=== PATIENT | female | born 1975 | race American Indian/Alaskan Native ===

== ENCOUNTER 2021-06-12 02:12 | Emergency (ER) | payer SELFPAY ==
[2021-06-12 02:36] VITALS: BP 147/88
[2021-06-12] MEDS ORDERED: ONDANSETRON 4 MG ODT TAB PO ONE (03:06)
[2021-06-12] MEDS ORDERED: IBUPROFEN 600 MG TAB PO ONE (03:06)
[2021-06-12] MEDS ORDERED: HYDROcodone/ACETAMINOPHEN 7.5-325MG TAB PO ONE (03:06)
--- NOTE | 2021-06-12 03:31 | Emergency Department Report ---
ED Extremity Problem HPI - General Chief complaint: Extremity Injury, Lower Stated complaint: RT ANKLE PAIN Source: patient Mode of arrival: Ambulatory Limitations: No Limitations - History of Present Illness Initial comments: Patient is a 45-year-old -[place] female with a history of asthma who presents to the ED with complaint of acute onset persistent nontraumatic right ankle and right fifth toe pain after wearing tight shoes and being on her feet for extended period of time for the last 5 days. Patient states that the pain has especially worsened in the last 24 hours. Patient states that she is unable to bear weight or walk because of worsening pain on the right ankle and right fifth toe. Patient denies fall, traumatic injury, nausea and vomiting, fever, chills, heavy lifting, numbness and tingling or weakness of right foot, shortness of breath, chest pain, nausea and vomiting or low back pain. MD Complaint: extremity pain (Right ankle wound right small toe pain), joint paint -: Sudden, days(s) (5) Location: right, lower extremity (Right ankle and right small toe pain), toe (Right small toe pain) History of Same: Yes -: Yes arthralgia, No associated dyspnea, No associated chest pain Radiation: distal Severity scale (0 -10): 7 Quality: aching, sharp Consistency: constant Improves with: nothing Worsens with: weight bearing, walking, exertion, palpation Associated Symptoms: denies other symptoms, arthralgias. denies: chest pain, shortness of breath, fever, myalgias, rash, other - Related Data Previous Rx's Medication Instructions Recorded Last Taken Type Naproxen 500 mg PO Q12H PRN #30 tab 06/12/21 Unknown Rx predniSONE [Deltasone] 40 mg PO QDAY #10 tab 06/12/21 Unknown Rx Allergies Allergy/AdvReac Type Severity Reaction Status Date / Time silver sulfadiazine AdvReac Unknown Verified 06/12/21 02:30 [From [facility] [place] [facility] [place] ED Review of Systems ROS: Stated complaint: RT ANKLE PAIN Other details as noted in HPI Constitutional: denies: chills, fever Eyes: denies: eye pain, eye discharge, vision change ENT: denies: ear pain, throat pain Respiratory: denies: cough, shortness of breath, wheezing Cardiovascular: denies: chest pain, palpitations Endocrine: no symptoms reported Gastrointestinal: denies: abdominal pain, nausea, vomiting, diarrhea Genitourinary: denies: urgency, dysuria, discharge Musculoskeletal: arthralgia (Right ankle and right fifth toe pain). denies: back pain, joint swelling Skin: denies: rash, lesions Neurological: denies: headache, weakness, paresthesias Psychiatric: denies: anxiety, depression Hematological/Lymphatic: denies: easy bleeding, easy bruising ED Past Medical Hx - Past Medical History Previous Medical History?: Yes Hx Asthma: Yes - Surgical History Past Surgical History?: Yes Additional Surgical History: Rt ankle surgery, - Medications Home Medications: Home Medications Medication Instructions Recorded Confirmed Last Taken Type Naproxen 500 mg PO Q12H PRN #30 tab 06/12/21 Unknown Rx predniSONE [Deltasone] 40 mg PO QDAY #10 tab 06/12/21 Unknown Rx ED Physical Exam - General Limitations: No Limitations General appearance: alert, in no apparent distress - Head Head exam: Present: atraumatic, normocephalic, normal inspection - Eye Eye exam: Present: normal appearance, PERRL, EOMI Pupils: Present: normal accommodation - ENT ENT exam: Present: normal exam, normal orophraynx, mucous membranes moist, TM's normal bilaterally, normal external ear exam - Neck Neck exam: Present: normal inspection, full ROM - Respiratory Respiratory exam: Present: normal lung sounds bilaterally. Absent: respiratory distress, wheezes, rales, stridor, chest wall tenderness, accessory muscle use, decreased breath sounds, prolonged expiratory - Cardiovascular Cardiovascular Exam: Present: regular rate, normal rhythm, normal heart sounds. Absent: systolic murmur, diastolic murmur, rubs, gallop - GI/Abdominal GI/Abdominal exam: Present: soft, normal bowel sounds. Absent: tenderness, guarding, rebound, hyperactive bowel sounds, hypoactive bowel sounds, organomegaly, mass - Extremities Exam Extremities exam: Present: normal inspection, full ROM, tenderness (Palpable right ankle and Achilles tendon tenderness), normal capillary refill, other (Palpable right fifth toe tenderness) - Back Exam Back exam: Present: normal inspection, full ROM. Absent: tenderness, CVA tenderness (R), CVA tenderness (L), muscle spasm, paraspinal tenderness, vertebral tenderness - Neurological Exam Neurological exam: Present: alert, oriented X3, CN II-XII intact, normal gait, reflexes normal - Psychiatric Psychiatric exam: Present: normal affect, normal mood - Skin Skin exam: Present: warm, dry, intact, normal color. Absent: rash ED Course Vital Signs 06/12/21 02:30 Temperature 98.5 F Pulse Rate 92 H Respiratory 18 Rate Blood Pressure 147/88 [Right] O2 Sat by Pulse 100 Oximetry ED Medical Decision Making - Medical Decision Making This is a 45-year-old -[place] female with a history of asthma who presents to the ED with complaint of acute onset persistent nontraumatic right ankle and right fifth toe pain after wearing tight shoes and being on her feet for extended period of time for the last 5 days. Patient states that the pain has especially worsened in the last 24 hours. Patient states that she is unable to bear weight or walk because of worsening pain on the right ankle and right fifth toe. In the ED, patient is alert and oriented x3 and is not in any distress. Patient however appears to be in pain during the physical exam. Patient was treated for pain in the ED and based on the history and physical exam findings, the patient symptoms are likely due to Achilles tendinitis versus muscle strain and right fifth toe sprain after wearing tight shoes at work. Patient was therefore discharged home on pain medications and advised to follow- up with her primary care physician in 5 to 7 days for reevaluation or return to the ED immediately if symptoms get worse. - Differential Diagnosis Achilles tendinitis; muscle strain; muscle spasm; foot sprain; toe sprain Critical care attestation.: If time is entered above; I have spent that time in minutes in the direct care of this critically ill patient, excluding procedure time. ED Disposition Clinical Impression: Achilles tendinitis of right lower extremity Strain of right ankle and foot Qualifiers: Encounter type: initial encounter Qualified Code(s): S96.911A - Strain of unspecified muscle and tendon at ankle and foot level, right foot, initial encounter Disposition: HOME / SELF CARE / HOMELESS Is pt being admited?: No Does the pt Need Aspirin: No Condition: Stable Instructions: Muscle Strain, [id number], Muscle Strain, Achilles Tendinitis Additional Instructions: Your symptoms are likely due to Achilles tendinitis or muscle strain of your right foot. Therefore take medications with food, drink plenty of fluids and follow-up with your primary care physician in 7 to 10 days for reevaluation. Return to the ED immediately if symptoms get worse. Prescriptions: predniSONE [Deltasone] 40 mg PO QDAY #10 tab Naproxen 500 mg PO Q12H PRN #30 tab PRN Reason: Pain , Severe (7-10) Referrals: DOREEN MATIAS MD [Primary Care Provider] - 3-5 Days Forms: Work/School Release Form(ED) Time of Disposition: 03:33 Print Language: TURKISH
== END 2021-06-12 04:04 | disposition home or self-care (01) ==
LOC: ED 02:12
DX: S96.911A Strain of unspecified muscle and tendon at ankle and foot level, right foot, initial encounter (principal); M76.61 Achilles tendinitis, right leg; J45.909 Unspecified asthma, uncomplicated; Z98.890 Other specified postprocedural states; Z88.8 Allergy status to other drugs, medicaments and biological substances; X58.XXXA Exposure to other specified factors, initial encounter; Y93.89 Activity, other specified; Y92.89 Other specified places as the place of occurrence of the external cause; Y99.8 Other external cause status
CPT/HCPCS: 99282; J3490; Q0162

== ENCOUNTER 2021-06-19 20:01 | Emergency (ER) | payer SELFPAY ==
[2021-06-19 21:29] VITALS: BP 165/95
--- NOTE | 2021-06-19 23:37 | Emergency Department Report ---
ED Extremity Problem HPI - General Chief complaint: Extremity Injury, Lower Stated complaint: TOE PAIN Source: patient Mode of arrival: Ambulatory Limitations: No Limitations - History of Present Illness Initial comments: Patient is a 45-year-old -[place] female with a history of asthma and heavy tobacco abuse who presents to the ED with complaint of acute onset persist ent distal right fifth toe pain with swelling and mild redness weeks. Patient states that she wore a tight shoe and suspect that her distal right fifth toe may have been scratched in the tight shoe and since then the pain has been getting worse. Patient states that she was initially evaluated about a week ago for the same and given pain medications but states that the pain has been persistent and worsening. Patient denies fall, traumatic injury, fever, chills, nausea and vomiting, chest pain or shortness of breath, numbness and tingling or weakness of upper and lower extremities bilaterally. MD Complaint: extremity pain (Right fifth toe pain with swelling and redness), joint swelling -: Sudden, week(s) (2) Location: right, toe (Right fifth toe pain) History of Same: No -: Yes arthralgia Radiation: distal Severity scale (0 -10): 8 Quality: aching, sharp Consistency: constant Improves with: nothing Worsens with: weight bearing, walking, exertion, palpation Associated Symptoms: denies other symptoms, arthralgias. denies: chest pain, shortness of breath, fever, myalgias - Related Data Previous Rx's Medication Instructions Recorded Last Taken Type Naproxen 500 mg PO Q12H PRN #30 tab 06/12/21 Unknown Rx predniSONE [Deltasone] 40 mg PO QDAY #10 tab 06/12/21 Unknown Rx cephALEXin [Keflex] 500 mg PO Q8HR #30 cap 06/19/21 Unknown Rx Allergies Allergy/AdvReac Type Severity Reaction Status Date / Time silver sulfadiazine AdvReac Unknown Verified 06/12/21 02:30 [From [facility]] ED Review of Systems ROS: Stated complaint: TOE PAIN Other details as noted in HPI Constitutional: denies: chills, fever Eyes: denies: eye pain, eye discharge, vision change ENT: denies: ear pain, throat pain Respiratory: denies: cough, shortness of breath, wheezing Cardiovascular: denies: chest pain, palpitations Endocrine: no symptoms reported Gastrointestinal: denies: abdominal pain, nausea, diarrhea Genitourinary: denies: urgency, dysuria, discharge Musculoskeletal: arthralgia (Distal right fifth toe pain and swelling). denies: back pain, joint swelling Skin: denies: rash, lesions Neurological: denies: headache, weakness, paresthesias Psychiatric: denies: anxiety, depression Hematological/Lymphatic: denies: easy bleeding, easy bruising ED Past Medical Hx - Past Medical History Previous Medical History?: Yes Hx Asthma: Yes - Surgical History Past Surgical History?: Yes Additional Surgical History: Rt ankle surgery, - Social History Smoking Status: Current Every Day Smoker - Medications Home Medications: Home Medications Medication Instructions Recorded Confirmed Last Taken Type Naproxen 500 mg PO Q12H PRN #30 tab 06/12/21 Unknown Rx predniSONE [Deltasone] 40 mg PO QDAY #10 tab 06/12/21 Unknown Rx cephALEXin [Keflex] 500 mg PO Q8HR #30 cap 06/19/21 Unknown Rx ED Physical Exam - General Limitations: No Limitations General appearance: alert, in no apparent distress - Head Head exam: Present: atraumatic, normocephalic, normal inspection - Eye Eye exam: Present: normal appearance, PERRL, EOMI Pupils: Present: normal accommodation - ENT ENT exam: Present: normal exam, normal orophraynx, mucous membranes moist, TM's normal bilaterally, normal external ear exam - Neck Neck exam: Present: normal inspection, full ROM. Absent: tenderness - Respiratory Respiratory exam: Present: normal lung sounds bilaterally. Absent: respiratory distress, wheezes, rales, rhonchi, chest wall tenderness, accessory muscle use, decreased breath sounds, prolonged expiratory - Cardiovascular Cardiovascular Exam: Present: regular rate, normal rhythm, normal heart sounds. Absent: systolic murmur, diastolic murmur, rubs, gallop - GI/Abdominal GI/Abdominal exam: Present: soft, normal bowel sounds. Absent: tenderness, hyperactive bowel sounds, hypoactive bowel sounds, organomegaly, mass - Extremities Exam Extremities exam: Present: normal inspection, full ROM, tenderness (Palpable distal tenderness on distal right fifth toe with mild redness), normal capillary refill - Back Exam Back exam: Present: normal inspection, full ROM. Absent: tenderness, CVA tenderness (L), muscle spasm, paraspinal tenderness, vertebral tenderness - Neurological Exam Neurological exam: Present: alert, oriented X3, CN II-XII intact, normal gait, reflexes normal - Psychiatric Psychiatric exam: Present: normal affect, normal mood - Skin Skin exam: Present: warm, dry, intact, normal color, rash (Mild erythematous rash on distal right right fifth toe), erythema ED Course Vital Signs 06/19/21 21:29 Temperature 98.0 F Pulse Rate 92 H Respiratory 18 Rate Blood Pressure 165/95 O2 Sat by Pulse 100 Oximetry ED Medical Decision Making - Medical Decision Making This is a 45-year-old -[place] female with a history of asthma and heavy tobacco abuse who presents to the ED with complaint of acute onset persistent distal right fifth toe pain with swelling and mild redness weeks. Patient states that she wore a tight shoe and suspect that her distal right fifth toe may have been scratched in the tight shoe and since then the pain has been getting worse. Patient states that she was initially evaluated about a week ago for the same and given pain medications but states that the pain has been persistent and worsening. In the ED, patient is alert and oriented x3 and is not in any distress. Patient was discharged home on antibiotics for suspected cellulitis of the distal right fifth toe. Patient is advised to follow-up with her primary care physician in 7 to 10 days for reevaluation or return to the ED immediately if symptoms get worse - Differential Diagnosis Cellulitis; toe sprain; toe contusion Critical care attestation.: If time is entered above; I have spent that time in minutes in the direct care of this critically ill patient, excluding procedure time. ED Disposition Clinical Impression: Cellulitis of fifth toe of right foot Sprain of interphalangeal joint of fifth toe of right foot Qualifiers: Encounter type: subsequent encounter Qualified Code(s): S93.514D - Sprain of interphalangeal joint of right lesser toe(s), subsequent encounter Disposition: HOME / SELF CARE / HOMELESS Is pt being admited?: No Does the pt Need Aspirin: No Condition: Stable Instructions: Cellulitis, Adult, [id number], [facility] Additional Instructions: Take medication with food, drink plenty of fluids and follow-up with your primary care physician in 7 to 10 days for reevaluation. Return to the ED immediately if symptoms get worse. Prescriptions: cephALEXin [Keflex] 500 mg PO Q8HR #30 cap Referrals: DOREEN MATIAS MD [Primary Care Provider] - 7-10 days Time of Disposition: 23:38 Print Language: SCOTTISH
== END 2021-06-20 00:07 | disposition home or self-care (01) ==
LOC: ED 20:01
DX: S93.51 Sprain of interphalangeal joint of toe (principal); L03.031 Cellulitis of right toe; J45.909 Unspecified asthma, uncomplicated; F17.200 Nicotine dependence, unspecified, uncomplicated; Z98.890 Other specified postprocedural states; Z88.8 Allergy status to other drugs, medicaments and biological substances; X58.XXXA Exposure to other specified factors, initial encounter; Y93.89 Activity, other specified; Y92.89 Other specified places as the place of occurrence of the external cause; Y99.8 Other external cause status
CPT/HCPCS: 99282